=== PATIENT | male | born 1940 | race Caucasian/White ===

== ENCOUNTER 2022-05-05 13:17 | Inpatient (IN) | payer MEDICARE ==
[2022-05-05] MEDS ORDERED: Sodium Chloride 0.9% 10 ML Syringe FLUSH PRN (14:06)
[2022-05-05] MEDS ORDERED: Sodium Chloride 0.9% 1,000 ML IV STA (14:06)
[2022-05-05] MEDS ORDERED: fentaNYL 100 MCG/2 ML SDV IVPUSH ONE ×4 (14:07→18:20)
[2022-05-05] MEDS ORDERED: Sodium Chloride 0.9% 50 ML IV SCH (14:15)
[2022-05-05] MEDS ORDERED: Iopamidol 612 MG/ML 100 ML Bottle IV SCH (14:15)
[2022-05-05] MEDS: Sodium Chloride 0.9% 10 ML Syringe FLUSH ONE ×2 (14:21→15:33)
[2022-05-05 14:45] LABS: ESTIMATED GFR 28 mL/min (>60)
[2022-05-05 14:47] LABS: TROPONIN I HIGH SENSITIVITY 332.2 pg/mL (<=60.3)
[2022-05-05] MEDS ORDERED: HYDROmorphone 0.5 MG/0.5 ML Syringe IVPUSH ONE (15:41)
[2022-05-05] MEDS ORDERED: Labetalol 20 MG/4 ML Syringe IVPUSH ONE (16:34)
[2022-05-05] MEDS ORDERED: Ondansetron 4 MG/2 ML SDV IV PRN (19:25)
[2022-05-05] MEDS ORDERED: Acetaminophen 325 MG Tab PO PRN (19:25)
[2022-05-05] MEDS ORDERED: LORazepam 2 MG/ML SDV IVPUSH PRN (19:25)
[2022-05-05] MEDS: Morphine 2 MG/ML SYRINGE IVPUSH PRN ×3 (19:48→22:36)
== END 2022-05-05 22:55 | disposition expired | DRG 951 ==
LOC: JP.ED 13:17 → JP.MS 18:00
PROVIDERS: ADMIT Internal Medicine; ATTEND Internal Medicine
DX: I71.33 Infrarenal abdominal aortic aneurysm, ruptured (principal); Z51.5 Encounter for palliative care; C66.2 Malignant neoplasm of left ureter; N18.4 Chronic kidney disease, stage 4 (severe); E87.20 Acidosis, unspecified; N13.30 Unspecified hydronephrosis; F17.210 Nicotine dependence, cigarettes, uncomplicated; F41.9 Anxiety disorder, unspecified; Z66 Do not resuscitate; Z91.013 Allergy to seafood; Z79.899 Other long term (current) drug therapy; Z87.81 Personal history of (healed) traumatic fracture; Z98.890 Other specified postprocedural states; Z72.0 Tobacco use
CPT/HCPCS: 36415; 74177; 80053; 83605; 83690; 84484; 85025; 85379; 86140; 96361; 96374; 96375; 96376; 99285 ×2; J1170; J3010 ×3; J3490 ×5; J7030; Q9967; 99223; 99238; J2060; J2270